=== PATIENT | female | born 1975 | race Native Hawaiian/Other Pacific Islander ===

== ENCOUNTER 2022-02-16 13:52 | Outpatient (CLI) | payer OTHER | END 2022-02-16 18:59 | disposition home or self-care (01) | LOC: RAD 13:52 | PROVIDERS: ATTEND Orthopaedic Surgery | DX: M25.522 Pain in left elbow (principal) ==

== ENCOUNTER 2022-03-01 14:16 | Outpatient (CLI) | payer OTHER | END 2022-03-01 18:53 | disposition home or self-care (01) | LOC: RAD 14:16 | PROVIDERS: ATTEND Family Medicine | DX: M54.59 Other low back pain (principal) ==

== ENCOUNTER 2022-05-25 14:03 | Outpatient (CLI) | payer OTHER | END 2022-05-25 20:38 | disposition home or self-care (01) | LOC: CT 14:03 | PROVIDERS: ATTEND Nurse Practitioner Family | DX: R51.9 Headache, unspecified (principal) ==